=== PATIENT | female | born 1995 | race Caucasian/White ===

== ENCOUNTER 2019-07-24 16:10 | Emergency (ER) | payer OTHER ==
[~2019-07-24] VITALS: Ht 167.6 cm; Wt 59.0 kg
[2019-07-24 16:15] VITALS: BP 149/87
[2019-07-24] MEDS ORDERED: NORCO 5-325 TA1 EAC1 PO (16:43)
[2019-07-24] MEDS ORDERED: SSD CREAM 1% 5050 GM TOP (16:43)
== END 2019-07-24 17:28 | disposition home or self-care (01) ==
LOC: M.ERS 16:10
DX: T25.222A Burn of second degree of left foot, initial encounter (principal); T23.202A Burn of second degree of left hand, unspecified site, initial encounter; X19.XXXA Contact with other heat and hot substances, initial encounter; Y93.89 Activity, other specified; Y92.89 Other specified places as the place of occurrence of the external cause; Y99.8 Other external cause status